=== PATIENT | female | born 1940 | race Caucasian/White ===

== ENCOUNTER 2018-11-04 15:48 | Emergency (ER) | payer BC, MEDICARE ==
[~2018-11-04] VITALS: Ht 165.1 cm; Wt 58.0 kg
[2018-11-04 16:19] VITALS: BP 166/96
[2018-11-04] MEDS ORDERED: LIDOcaine 1% w/epiNEPHrine 1:200,000 30ml vial IM ONE (16:35)
[2018-11-04] MEDS ORDERED: CEPH500C5 PO (16:57)
== END 2018-11-04 17:16 | disposition home or self-care (01) ==
LOC: ER 15:51
DX: S80.811A Abrasion, right lower leg, initial encounter (principal); L03.115 Cellulitis of right lower limb; F41.9 Anxiety disorder, unspecified; F17.200 Nicotine dependence, unspecified, uncomplicated; F17.210 Nicotine dependence, cigarettes, uncomplicated; Z79.2 Long term (current) use of antibiotics; X58.XXXA Exposure to other specified factors, initial encounter; Y93.89 Activity, other specified; Y92.89 Other specified places as the place of occurrence of the external cause; Y99.8 Other external cause status
CPT/HCPCS: 99283

== ENCOUNTER 2018-11-12 13:42 | Emergency (ER) | payer BC ==
[~2018-11-12] VITALS: Ht 165.1 cm; Wt 53.0 kg
[~2018-11-12 13:42] MED LIST: CEPH500C5 PO
[2018-11-12 13:46] VITALS: BP 158/93
== END 2018-11-12 15:15 | disposition home or self-care (01) ==
LOC: ER 13:42
DX: S81.801D Unspecified open wound, right lower leg, subsequent encounter (principal); F41.9 Anxiety disorder, unspecified; Z79.2 Long term (current) use of antibiotics; X58.XXXD Exposure to other specified factors, subsequent encounter
CPT/HCPCS: 99281

== ENCOUNTER 2018-11-29 14:14 | Emergency (ER) | payer BC, MEDICARE ==
[~2018-11-29] VITALS: Ht 165.1 cm; Wt 55.9 kg
[2018-11-29 14:22] VITALS: BP 131/71
[2018-11-29] MEDS ORDERED: ALPR-624 PO (15:57)
[2018-11-29] MEDS ORDERED: GABA600T13 PO (15:57)
== END 2018-11-29 16:14 | disposition home or self-care (01) ==
LOC: ER 14:17
DX: G62.9 Polyneuropathy, unspecified (principal); F41.9 Anxiety disorder, unspecified; Z76.0 Encounter for issue of repeat prescription; Z79.899 Other long term (current) drug therapy
CPT/HCPCS: 99283

== ENCOUNTER 2019-01-25 10:38 | Emergency (ER) | payer MEDICARE ==
[~2019-01-25] VITALS: Ht 167.6 cm; Wt 60.5 kg
[~2019-01-25 10:38] MED LIST changes: +ALPR-624 PO; -CEPH500C5 PO; +GABA600T13 PO
[2019-01-25 13:45] VITALS: BP 161/93
== END 2019-01-25 13:48 | disposition home or self-care (01) ==
LOC: ER 10:39
DX: S80.811A Abrasion, right lower leg, initial encounter (principal); G62.9 Polyneuropathy, unspecified; F41.9 Anxiety disorder, unspecified; F10.99 Alcohol use, unspecified with unspecified alcohol-induced disorder; Z79.899 Other long term (current) drug therapy; W18.39XA Other fall on same level, initial encounter; Y93.89 Activity, other specified; Y92.89 Other specified places as the place of occurrence of the external cause; Y99.8 Other external cause status; Y90.9 Presence of alcohol in blood, level not specified
CPT/HCPCS: 70450; 72125; 99284

== ENCOUNTER 2019-03-12 10:00 | Emergency (ER) | payer MEDICARE ==
[~2019-03-12] VITALS: Ht 165.1 cm; Wt 62.9 kg
[2019-03-12 10:16] VITALS: BP 153/87
[2019-03-12] MEDS ORDERED: CEPH500C5 PO (13:07)
[2019-03-12] MEDS ORDERED: CLOT15CR73 TP (13:07)
== END 2019-03-12 13:20 | disposition home or self-care (01) ==
LOC: ER 10:02
DX: N61.0 Mastitis without abscess (principal); B37.2 Candidiasis of skin and nail; F41.9 Anxiety disorder, unspecified; F10.99 Alcohol use, unspecified with unspecified alcohol-induced disorder; G62.9 Polyneuropathy, unspecified; Z79.899 Other long term (current) drug therapy; Z85.3 Personal history of malignant neoplasm of breast; Y90.9 Presence of alcohol in blood, level not specified
CPT/HCPCS: 99283

== ENCOUNTER 2019-07-24 12:51 | Emergency (ER) | payer BC, MEDICARE ==
[~2019-07-24] VITALS: Ht 167.6 cm; Wt 63.6 kg
[~2019-07-24 12:51] MED LIST changes: +CLOT15CR73 TP
[2019-07-24] MEDS ORDERED: DONE-46 PO (13:23)
[2019-07-24 15:21] LABS: BASOPHILS % (AUTO) 0.5 % (0-1); EOSINOPHILS # (AUTO) 0.1 X10'3 (0-0.9); EOSINOPHILS % (AUTO) 1.5 % (0-6); HEMATOCRIT 42.1 % (35.0-45.0); HEMOGLOBIN 14.2 g/dl (12.0-16.0); LYMPHOCYTES # (AUTO) 1.2 X10'3 (1.1-4.8); LYMPHOCYTES % (AUTO) 21.9 % (21-51); MEAN CORPUSCULAR HEMOGLOBIN 31.8 PG (27.0-31.0); MEAN CORPUSCULAR HGB CONC 33.7 g/dL (33.0-36.5); MEAN CORPUSCULAR VOLUME 94.4 FL (78-98); MEAN PLATELET VOLUME 7.8 FL (7.4-10.4); MONOCYTES # (AUTO) 0.4 X10'3 (0-0.9); MONOCYTES % (AUTO) 7.9 % (2-12); NEUTROPHILS # (AUTO) 3.8 X10'3 (1.8-7.7); NEUTROPHILS % (AUTO) 68.2 % (42-75); PLATELET COUNT 185 X10'3 (140-440); RED BLOOD COUNT 4.46 X10'6 (4.20-5.60); RED CELL DISTRIBUTION WIDTH 13.1 % (11.5-14.5); WHITE BLOOD COUNT 5.5 X10'3 (4.5-11.0)
[2019-07-24 15:36] LABS: PARTIAL THROMBOPLASTIN TIME 29 SECONDS (22-32)
[2019-07-24 15:37] VITALS: BP 150/85
[2019-07-24 15:48] LABS: ALANINE AMINOTRANSFERASE 20 U/L (12-78); ALBUMIN/GLOBULIN RATIO 1.4 (1.1-1.5); ALKALINE PHOSPHATASE 74 IU/L (46-116); ANION GAP 7 (8-16); ASPARTATE AMINO TRANSFERASE 21 U/L (10-37); BILIRUBIN,TOTAL 0.4 MG/DL (0.1-1.0); BLOOD UREA NITROGEN 10 MG/DL (7-18); BUN/CREATININE RATIO 13.5 (6.6-38.0); CALCIUM 8.9 MG/DL (8.5-10.1); CHLORIDE 101 MMOL/L (99-107); CREATININE 0.74 MG/DL (0.40-0.90); GLUCOSE 100 MG/DL (70-104); POTASSIUM 3.9 MMOL/L (3.5-5.1); SODIUM 136 MMOL/L (135-145); TOTAL CARBON DIOXIDE 27.6 MMOL/L (24-32); TOTAL PROTEIN 6.8 G/DL (6.4-8.2); eGFR 76 ML/MIN
== END 2019-07-24 16:00 | disposition home or self-care (01) ==
LOC: ER 12:51
DX: D69.2 Other nonthrombocytopenic purpura (principal); R21 Rash and other nonspecific skin eruption; F41.9 Anxiety disorder, unspecified; Z79.899 Other long term (current) drug therapy
CPT/HCPCS: 36415; 80053; 85025; 85610; 85730; 99283

== ENCOUNTER 2019-09-21 11:16 | Emergency (ER) | payer BC, MEDICARE ==
[~2019-09-21] VITALS: Ht 165.1 cm; Wt 59.1 kg
[~2019-09-21 11:16] MED LIST changes: +DONE-46 PO
[2019-09-21 11:26] VITALS: BP 136/74
--- NOTE | 2019-09-21 12:28 | NUR ---
pt out to xray in a wheelchair with chang cortes
--- NOTE | 2019-09-21 12:36 | NUR ---
pt returns from xray
[2019-09-21] MEDS ORDERED: CEPH250T PO (13:22)
[2019-09-21] MEDS ORDERED: traMADol 50MG tablet PO ONE ×2 (13:25→13:50)
--- NOTE | 2019-09-21 13:48 | NUR ---
Attempted to give pt tramadol. Pt accidentally dropped medication. Pharmacy contacted and another dose to be administered.
== END 2019-09-21 14:24 | disposition home or self-care (01) ==
LOC: ER 11:17
DX: S00.83XA Contusion of other part of head, initial encounter (principal); M25.551 Pain in right hip; R58 Hemorrhage, not elsewhere classified; F41.9 Anxiety disorder, unspecified; Z72.89 Other problems related to lifestyle; Z79.2 Long term (current) use of antibiotics; Z79.899 Other long term (current) drug therapy; W01.198A Fall on same level from slipping, tripping and stumbling with subsequent striking against other object, initial encounter; Y92.89 Other specified places as the place of occurrence of the external cause; Z91.81 History of falling; Y93.89 Activity, other specified
CPT/HCPCS: 70450; 73522; 99284

== ENCOUNTER 2020-03-16 11:33 | Observation (INO) | payer BC, MEDICARE ==
[~2020-03-16] VITALS: Ht 165.1 cm; Wt 64.4 kg
[2020-03-16 13:21] LABS: BASOPHILS % (AUTO) 0.7 % (0-1); EOSINOPHILS # (AUTO) 0.1 X10'3 (0-0.9); EOSINOPHILS % (AUTO) 2.2 % (0-6); HEMATOCRIT 33.2 % (35.0-45.0); HEMOGLOBIN 10.2 g/dl (12.0-16.0); LYMPHOCYTES # (AUTO) 1.5 X10'3 (1.1-4.8); LYMPHOCYTES % (AUTO) 25.8 % (21-51); MEAN CORPUSCULAR HEMOGLOBIN 21.6 PG (27.0-31.0); MEAN CORPUSCULAR HGB CONC 30.8 g/dL (33.0-36.5); MEAN CORPUSCULAR VOLUME 70.2 FL (78-98); MEAN PLATELET VOLUME 7.9 FL (7.4-10.4); MONOCYTES # (AUTO) 0.7 X10'3 (0-0.9); MONOCYTES % (AUTO) 11.3 % (2-12); NEUTROPHILS # (AUTO) 3.5 X10'3 (1.8-7.7); PLATELET COUNT 234 X10'3 (140-440); RED BLOOD COUNT 4.72 X10'6 (4.20-5.60); RED CELL DISTRIBUTION WIDTH 19.4 % (11.5-14.5); WHITE BLOOD COUNT 5.8 X10'3 (4.5-11.0)
[2020-03-16 13:38] LABS: ALANINE AMINOTRANSFERASE 30 U/L (12-78); ALBUMIN 4.4 G/DL (3.4-5.0); ALBUMIN/GLOBULIN RATIO 1.4 (1.1-1.5); ALKALINE PHOSPHATASE 86 IU/L (46-116); ANION GAP 9 (8-16); ASPARTATE AMINO TRANSFERASE 25 U/L (10-37); BILIRUBIN,TOTAL 0.5 MG/DL (0.1-1.0); BLOOD UREA NITROGEN 8 MG/DL (7-18); BUN/CREATININE RATIO 11.9 (6.6-38.0); CALCIUM 8.8 MG/DL (8.5-10.1); CHLORIDE 102 MMOL/L (99-107); CREATININE 0.67 MG/DL (0.40-0.90); GLUCOSE 102 MG/DL (70-104); POTASSIUM 3.9 MMOL/L (3.5-5.1); SODIUM 139 MMOL/L (135-145); TOTAL CARBON DIOXIDE 28.3 MMOL/L (24-32); TOTAL PROTEIN 7.5 G/DL (6.4-8.2); eGFR 85 ML/MIN
[2020-03-16 13:42] LABS: TROPONIN I < 0.04 NG/ML (0.0-0.05)
[2020-03-16 13:43] LABS: ANISOCYTOSIS 2+; MICROCYTOSIS 1+; PLATELET ESTIMATE NORMAL
[2020-03-16 13:44] LABS: HYPOCHROMASIA 1+
[2020-03-16 16:04] LABS: CLARITY,URINE CLEAR (Clear); COLOR,URINE YELLOW (Yellow); GLUCOSE, URINE NEGATIVE (Neg); KETONES,URINE NEGATIVE (Neg); LEUKOCYTE ESTERASE ,URINE SMALL (Neg); NITRITES, URINE NEGATIVE (Neg); OCCULT BLOOD,URINE NEGATIVE (Neg); PROTEIN,URINE NEGATIVE (Neg); UA COLLECTION TYPE CLN CATCH MIDSTREAM; UROBILINOGEN,URINE 0.2 E.U/dL (0.2-1.0)
[2020-03-16] MEDS ORDERED: ondansetron/PF 4mg/2ml inj IV PRN (16:05)
[2020-03-16] MEDS ORDERED: acetaminophen 325mg tablet PO PRN ×2 (16:05)
[2020-03-16] MEDS ORDERED: magnesium hydroxide 30ml (MOM) UD suspension PO PRN (16:05)
[2020-03-16] MEDS ORDERED: mag hydrox/Alum hydrox/simeth 30ml oral suspension PO PRN (16:05)
[2020-03-16] MEDS ORDERED: dextrose 5%-1/2 normal saline 1,000 ML IV SCH (16:05)
[2020-03-16] MEDS ORDERED: morphine 2 MG/ML inj. syringe IV PRN ×2 (16:05)
[2020-03-16 16:08] LABS: BACTERIA,URINE FEW /HPF (Neg); MUCUS STRANDS FEW /LPF (Neg); RBC,URINE 0-2 /HPF (0-2); SQUAMOUS EPITHELIAL CELL,UR FEW /LPF (FEW); WBC,URINE 0-4 /HPF (0-4)
[2020-03-16] MEDS ORDERED: OLAN5TAB26 PO (16:17)
[2020-03-16] MEDS ORDERED: DONE10TA44 PO (16:17)
[2020-03-16] MEDS ORDERED: GABA600T13 PO (16:17)
[2020-03-16] MEDS ORDERED: DIVA500T9 PO (16:17)
[2020-03-16 16:39] LABS: MAGNESIUM 2.3 MG/DL (1.5-2.4); PHOSPHORUS 3.8 MG/DL (2.3-4.5)
--- NOTE | 2020-03-16 16:55 | NUR ---
Denis () [facility] [phone] Cell- [phone]
--- NOTE | 2020-03-16 17:40 | NUR ---
Patient is tearful/restless and states she is anxious and "can't stay like this any longer." [facility] called. Patient reassured. Now sitting in room quietly.
[2020-03-16] MEDS ORDERED: LORazepam 1 MG tablet PO ONE (18:30)
--- NOTE | 2020-03-16 18:32 | NUR ---
Dr. Acosta at bedside. SBP >190. Pt is anxious and tearful. Orders placed.
[2020-03-16] MEDS ORDERED: LORazepam 0.5 MG tablet PO ONE (18:50)
--- NOTE | 2020-03-16 19:51 | NUR ---
attempt to call report to nurse on floor taking pt
[2020-03-16] MEDS ORDERED: LORazepam 0.5 MG tablet PO PRN (20:05)
--- NOTE | 2020-03-16 20:08 | NUR ---
attempt to call report to floo nurse receiving pt
--- NOTE | 2020-03-16 20:10 | NUR ---
Patient in room PCU 3023. I have received report from ed rn and had the opportunity to ask questions and assume patient care.
[2020-03-16 22:00] VITALS: BP_SYST 140; BP_SYST 163; BP_SYST 178; BP_DIAS 59; BP_DIAS 78; BP_DIAS 80
[2020-03-16] MEDS: donepezil 5mg tablet PO SCH (22:31)
[2020-03-16] MEDS: cloNIDine 0.1 mg tablet PO SCH (22:32)
[2020-03-16] MEDS: gabapentin 300mg capsule PO SCH (22:32)
[2020-03-16] MEDS: divalproex 250mg tablet, delayed-release PO SCH (22:32)
[2020-03-17] VITALS (7 sets, daily range): BP systolic 84–143; BP diastolic 51–77
[2020-03-17 06:24] LABS: BASOPHILS % (AUTO) 0.9 % (0-1); EOSINOPHILS # (AUTO) 0.2 X10'3 (0-0.9); EOSINOPHILS % (AUTO) 3.5 % (0-6); HEMATOCRIT 29.4 % (35.0-45.0); HEMOGLOBIN 8.9 g/dl (12.0-16.0); LYMPHOCYTES # (AUTO) 1.3 X10'3 (1.1-4.8); LYMPHOCYTES % (AUTO) 30.4 % (21-51); MEAN CORPUSCULAR HEMOGLOBIN 21.4 PG (27.0-31.0); MEAN CORPUSCULAR HGB CONC 30.4 g/dL (33.0-36.5); MEAN CORPUSCULAR VOLUME 70.4 FL (78-98); MEAN PLATELET VOLUME 8.5 FL (7.4-10.4); MONOCYTES # (AUTO) 0.5 X10'3 (0-0.9); MONOCYTES % (AUTO) 12.1 % (2-12); NEUTROPHILS # (AUTO) 2.3 X10'3 (1.8-7.7); NEUTROPHILS % (AUTO) 53.1 % (42-75); PLATELET COUNT 199 X10'3 (140-440); RED BLOOD COUNT 4.17 X10'6 (4.20-5.60); RED CELL DISTRIBUTION WIDTH 18.5 % (11.5-14.5); WHITE BLOOD COUNT 4.4 X10'3 (4.5-11.0)
--- NOTE | 2020-03-17 06:25 | NUR ---
Patient in room PCU 3023. I have received report from tara woodson and had the opportunity to ask questions and assume patient care.
[2020-03-17 06:34] LABS: ALBUMIN 3.6 G/DL (3.4-5.0); ANION GAP 6 (8-16); BLOOD UREA NITROGEN 10 MG/DL (7-18); BUN/CREATININE RATIO 15.4 (6.6-38.0); CALCIUM 8.6 MG/DL (8.5-10.1); CHLORIDE 105 MMOL/L (99-107); CREATININE 0.65 MG/DL (0.40-0.90); GLUCOSE 99 MG/DL (70-104); POTASSIUM 3.8 MMOL/L (3.5-5.1); SODIUM 141 MMOL/L (135-145); TOTAL CARBON DIOXIDE 29.7 MMOL/L (24-32); eGFR 88 ML/MIN
--- NOTE | 2020-03-17 07:26 | NUR ---
Problems reprioritized. Patient report given, questions answered & plan of care reviewed with Kayley RIZO.
[2020-03-17] MEDS: OLANZAPINE 5 MG TABLET PO SCH (08:48)
[2020-03-17] MEDS: divalproex 250mg tablet, delayed-release PO SCH ×2 (08:48→19:42)
[2020-03-17] MEDS: cloNIDine 0.1 mg tablet PO SCH ×3 (08:49→19:43)
[2020-03-17] MEDS: gabapentin 300mg capsule PO SCH ×3 (08:49→19:42)
[2020-03-17] MEDS ORDERED: LORazepam 2 mg/ml vial IV PRN (11:40)
--- NOTE | 2020-03-17 18:29 | NUR ---
Problems reprioritized. Patient report given, questions answered & plan of care reviewed with .tara salas
[2020-03-17] MEDS: donepezil 5mg tablet PO SCH (19:42)
[2020-03-18 02:00] VITALS: BP 114/49
[2020-03-18 06:00] VITALS: BP 115/63
--- NOTE | 2020-03-18 06:24 | NUR ---
Report given to Emerald RIZO.
--- NOTE | 2020-03-18 06:39 | NUR ---
Patient in room PCU 3023B. I have received report from SALLIE MANNING and had the opportunity to ask questions and assume patient care.
[2020-03-18 07:06] LABS: ALBUMIN 3.5 G/DL (3.4-5.0); ANION GAP 8 (8-16); BASOPHILS % (AUTO) 0.7 % (0-1); BLOOD UREA NITROGEN 15 MG/DL (7-18); BUN/CREATININE RATIO 22.7 (6.6-38.0); CALCIUM 8.3 MG/DL (8.5-10.1); CHLORIDE 102 MMOL/L (99-107); CREATININE 0.66 MG/DL (0.40-0.90); EOSINOPHILS # (AUTO) 0.2 X10'3 (0-0.9); EOSINOPHILS % (AUTO) 3.4 % (0-6); GLUCOSE 92 MG/DL (70-104); HEMATOCRIT 31.4 % (35.0-45.0); HEMOGLOBIN 9.8 g/dl (12.0-16.0); LYMPHOCYTES # (AUTO) 1.6 X10'3 (1.1-4.8); MEAN CORPUSCULAR HEMOGLOBIN 21.7 PG (27.0-31.0); MEAN CORPUSCULAR HGB CONC 31.2 g/dL (33.0-36.5); MEAN CORPUSCULAR VOLUME 69.4 FL (78-98); MEAN PLATELET VOLUME 7.9 FL (7.4-10.4); MONOCYTES # (AUTO) 0.5 X10'3 (0-0.9); MONOCYTES % (AUTO) 10.3 % (2-12); NEUTROPHILS # (AUTO) 2.5 X10'3 (1.8-7.7); NEUTROPHILS % (AUTO) 52.6 % (42-75); PLATELET COUNT 214 X10'3 (140-440); POTASSIUM 4.1 MMOL/L (3.5-5.1); RED BLOOD COUNT 4.52 X10'6 (4.20-5.60); RED CELL DISTRIBUTION WIDTH 18.8 % (11.5-14.5); SODIUM 138 MMOL/L (135-145); TOTAL CARBON DIOXIDE 27.9 MMOL/L (24-32); WHITE BLOOD COUNT 4.8 X10'3 (4.5-11.0); eGFR 87 ML/MIN
[2020-03-18] MEDS: cloNIDine 0.1 mg tablet PO SCH (08:00)
[2020-03-18] MEDS ORDERED: CefTRIAXone/D5W-Rocephin 1gm 50 ML IV ONE (08:55)
[2020-03-18] MEDS: divalproex 250mg tablet, delayed-release PO SCH (10:00)
[2020-03-18] MEDS: gabapentin 300mg capsule PO SCH (10:00)
[2020-03-18] MEDS ORDERED: pneumococcal 23-VAL P-sac vacc 25 mcg/0.5ml vial IMVAC ONE (10:00)
[2020-03-18] MEDS: OLANZAPINE 5 MG TABLET PO SCH (10:01)
[2020-03-18 11:00] VITALS: BP 114/55
[2020-03-18 11:36] LABS: ANISOCYTOSIS 2+; ELLIPTOCYTES FEW; MICROCYTOSIS 2+; PLATELET ESTIMATE NORMAL
[2020-03-18] MEDS ORDERED: CIPR-230 PO (12:23)
--- NOTE | 2020-03-18 17:49 | NUR ---
PATIENT STABLE AND APPROPRIATE FOR DISCHARGE, IV TAKEN OUT, NEW MEDS E-SCRIPTED TO PREFERRED PHARMACY, ALL BELONGINGS SENT WITH PATIENT, PATIENT TAKEN TO LOBBY IN WHEELCHAIR TO AN AWAITING CAR WHERE WILL TAKE PATIENT HOME
== END 2020-03-18 13:40 | disposition home or self-care (01) ==
LOC: ER 11:33 → ED HOLD 16:02 → EDBEDREQ 19:45 → PCU 3S 20:35
PROVIDERS: ADMIT Internal Medicine; ATTEND Internal Medicine
DX: R55 Syncope and collapse (principal); F03.90 Unspecified dementia, unspecified severity, without behavioral disturbance, psychotic disturbance, mood disturbance, and anxiety; I10 Essential (primary) hypertension; D50.9 Iron deficiency anemia, unspecified; N39.0 Urinary tract infection, site not specified; G62.9 Polyneuropathy, unspecified; F41.9 Anxiety disorder, unspecified; F17.210 Nicotine dependence, cigarettes, uncomplicated; W07.XXXA Fall from chair, initial encounter; Y93.89 Activity, other specified; Y92.59 Other trade areas as the place of occurrence of the external cause
CPT/HCPCS: 36415; 70450; 70551; 80048; 80053; 81001; 83735; 83880; 84100; 84484; 85008; 85025; 87077; 87081; 87088; 87186; 93005; 93306; 96361; 96365; 99285; G0378; J0696

== ENCOUNTER 2020-09-20 09:16 | Outpatient (CLI) | payer BC ==
[~2020-09-20 09:16] MED LIST changes: -ALPR-624 PO; -CLOT15CR73 TP; +DIVA500T9 PO; -DONE-46 PO; +DONE10TA44 PO; +OLAN5TAB26 PO
== END 2020-09-20 23:59 | disposition home or self-care (01) ==
LOC: RAD 09:16
PROVIDERS: ATTEND Psychiatry & Neurology Neurology
DX: F03.90 Unspecified dementia, unspecified severity, without behavioral disturbance, psychotic disturbance, mood disturbance, and anxiety (principal)
CPT/HCPCS: 95816

== ENCOUNTER 2020-11-20 10:27 | Inpatient (IN) | payer BC ==
[~2020-11-20] VITALS: Ht 165.1 cm; Wt 59.1 kg
[~2020-11-20 10:27] MED LIST changes: -OLAN5TAB26 PO; +OLAN5TAB75 PO
[2020-11-20 12:33] LABS: CLARITY,URINE SLIGHTLY CLOUDY (Clear); COLOR,URINE YELLOW (Yellow); GLUCOSE, URINE NEGATIVE (Neg); KETONES,URINE TRACE mg/dl (Neg); LEUKOCYTE ESTERASE ,URINE NEGATIVE (Neg); NITRITES, URINE NEGATIVE (Neg); OCCULT BLOOD,URINE NEGATIVE (Neg); PH,URINE 5.5 (4.8-8.0); PROTEIN,URINE NEGATIVE (Neg); UROBILINOGEN,URINE 0.2 E.U/dL (0.2-1.0)
[2020-11-20 12:41] LABS: UA COLLECTION TYPE FOLEY CATH
[2020-11-20 12:45] LABS: RBC,URINE NONE SEEN /HPF (0-2); WBC,URINE 0-4 /HPF (0-4)
[2020-11-20 12:46] LABS: BACTERIA,URINE NONE SEEN /HPF (Neg); HYALINE CASTS >30 /LPF (NEGATIVE); MUCUS STRANDS MODERATE /LPF (Neg); SQUAMOUS EPITHELIAL CELL,UR FEW /LPF (FEW)
[2020-11-20 12:54] LABS: BASOPHILS % (AUTO) 0 % (0-1); EOSINOPHILS % (AUTO) 0 % (0-6); HEMATOCRIT 38.6 % (35.0-45.0); HEMOGLOBIN 12.9 g/dl (12.0-16.0); LYMPHOCYTES # (AUTO) 0.8 X10'3 (1.1-4.8); LYMPHOCYTES % (AUTO) 5.8 % (21-51); MEAN CORPUSCULAR HEMOGLOBIN 31.8 PG (27.0-31.0); MEAN CORPUSCULAR HGB CONC 33.3 g/dL (33.0-36.5); MEAN CORPUSCULAR VOLUME 95.5 FL (78-98); MONOCYTES # (AUTO) 1.2 X10'3 (0-0.9); MONOCYTES % (AUTO) 8.1 % (2-12); NEUTROPHILS # (AUTO) 12.6 X10'3 (1.8-7.7); NEUTROPHILS % (AUTO) 86.1 % (42-75); PLATELET COUNT 230 X10'3 (140-440); RED BLOOD COUNT 4.04 X10'6 (4.20-5.60); RED CELL DISTRIBUTION WIDTH 13.8 % (11.5-14.5); WHITE BLOOD COUNT 14.6 X10'3 (4.5-11.0)
[2020-11-20 13:05] LABS: PARTIAL THROMBOPLASTIN TIME 25 SECONDS (22-32)
[2020-11-20 13:06] LABS: ALANINE AMINOTRANSFERASE 22 U/L (12-78); ALBUMIN 3.6 G/DL (3.4-5.0); ALBUMIN/GLOBULIN RATIO 1.6 (1.1-1.5); ALKALINE PHOSPHATASE 58 IU/L (46-116); ANION GAP 14 (8-16); ASPARTATE AMINO TRANSFERASE 31 U/L (10-37); BILIRUBIN,TOTAL 0.6 MG/DL (0.1-1.0); BLOOD UREA NITROGEN 7 MG/DL (7-18); BUN/CREATININE RATIO 10.1 (6.6-38.0); CALCIUM 7.7 MG/DL (8.5-10.1); CHLORIDE 99 MMOL/L (99-107); CREATININE 0.69 MG/DL (0.40-0.90); GLUCOSE 108 MG/DL (70-104); POTASSIUM 4.2 MMOL/L (3.5-5.1); SODIUM 137 MMOL/L (135-145); TOTAL CARBON DIOXIDE 23.6 MMOL/L (24-32); TOTAL PROTEIN 5.9 G/DL (6.4-8.2); eGFR 82 ML/MIN
[2020-11-20] MEDS: normal saline 1000ml 1,000 ML IV SCH (14:25)
[2020-11-20] MEDS ORDERED: ondansetron/PF 4mg/2ml inj IV PRN (14:25)
[2020-11-20] MEDS ORDERED: acetaminophen 325mg tablet PO PRN (14:25)
[2020-11-20] MEDS ORDERED: mag hydrox/Alum hydrox/simeth 30ml oral suspension PO PRN (14:25)
--- NOTE | 2020-11-20 17:09 | NUR ---
Patient in room ED 3. I have received report from Amaris RIZO and had the opportunity to ask questions and assume patient care.
--- NOTE | 2020-11-20 17:50 | NUR ---
unable to assess pts buttocks during skin check. will let shift supervisor film processing know so that they can medicate her before doing so.
[2020-11-20 17:52] VITALS: BP 162/70
--- NOTE | 2020-11-20 17:59 | NUR ---
Page Sent PAGER ID: [phone] MESSAGE: [phone] b Mary Ann Cheema, can I get some po pain meds? pt is in pain and only has morphine IV ordered.
[2020-11-20] MEDS: morphine 2 MG/ML inj. syringe IV PRN (18:07)
--- NOTE | 2020-11-20 18:33 | NUR ---
Problems reprioritized. Patient report given, questions answered & plan of care reviewed with andrey pacheco.
[2020-11-20] MEDS: docusate sod 100mg capsule PO SCH (20:00)
[2020-11-20] MEDS: donepezil 5mg tablet PO SCH (20:14)
[2020-11-20 22:00] VITALS: BP 127/66
[2020-11-21] MEDS: normal saline 1000ml 1,000 ML IV SCH ×3 (05:07→20:25)
[2020-11-21 06:00] VITALS: BP 141/75
[2020-11-21 07:03] LABS: BASOPHILS % (AUTO) 0.2 % (0-1); EOSINOPHILS % (AUTO) 0.1 % (0-6); HEMOGLOBIN 10.5 g/dl (12.0-16.0); LYMPHOCYTES # (AUTO) 1.2 X10'3 (1.1-4.8); MEAN CORPUSCULAR HEMOGLOBIN 31.8 PG (27.0-31.0); MEAN CORPUSCULAR HGB CONC 33.7 g/dL (33.0-36.5); MEAN CORPUSCULAR VOLUME 94.2 FL (78-98); MEAN PLATELET VOLUME 8.2 FL (7.4-10.4); MONOCYTES # (AUTO) 0.8 X10'3 (0-0.9); MONOCYTES % (AUTO) 12.6 % (2-12); NEUTROPHILS # (AUTO) 4.5 X10'3 (1.8-7.7); NEUTROPHILS % (AUTO) 69.1 % (42-75); PLATELET COUNT 142 X10'3 (140-440); RED BLOOD COUNT 3.29 X10'6 (4.20-5.60); WHITE BLOOD COUNT 6.5 X10'3 (4.5-11.0)
[2020-11-21] MEDS: docusate sod 100mg capsule PO SCH ×2 (07:08→21:38)
[2020-11-21] MEDS: enoxaparin 40mg/0.4ml syringe SUBCUT SCH (07:08)
[2020-11-21] MEDS: donepezil 5mg tablet PO SCH ×2 (07:08→21:38)
[2020-11-21 07:52] LABS: ANION GAP 8 (8-16); BLOOD UREA NITROGEN 11 MG/DL (7-18); BUN/CREATININE RATIO 20.4 (6.6-38.0); CHLORIDE 105 MMOL/L (99-107); CREATININE 0.54 MG/DL (0.40-0.90); GLUCOSE 98 MG/DL (70-104); SODIUM 140 MMOL/L (135-145); TOTAL CARBON DIOXIDE 26.9 MMOL/L (24-32); eGFR > 90 ML/MIN
[2020-11-21 10:56] VITALS: BP 156/89
--- NOTE | 2020-11-21 12:20 | NUR ---
Isidro Consult: Isidro Gooden; skin intact per EMR. Addendum: 11/21/20 at [address] Amended: Links added.
[2020-11-21] MEDS: morphine 2 MG/ML inj. syringe IV PRN (17:27)
[2020-11-21 18:00] VITALS: BP 165/86
--- NOTE | 2020-11-21 18:35 | NUR ---
Patient in room ORTHO 4010. I have received report from Amber RIZO and had the opportunity to ask questions and assume patient care.
[2020-11-21] MEDS: HYDROcodone/acetaminophen 10/325mg tab PO PRN ×2 (18:55→23:27)
--- NOTE | 2020-11-21 19:30 | NUR ---
Her left leg is externally rotated from the fracture Addendum: 11/22/20 at 0016 by Blanche Taylor RN Amended: Links added.
[2020-11-21 22:00] VITALS: BP 145/76
[2020-11-22] VITALS (17 sets, daily range): BP systolic 88–175; BP diastolic 44–91
[2020-11-22] MEDS: morphine 2 MG/ML inj. syringe IV PRN (04:50)
--- NOTE | 2020-11-22 06:30 | NUR ---
Problems reprioritized. Patient report given, questions answered & plan of care reviewed with Cecy RIZO.
--- NOTE | 2020-11-22 06:39 | NUR ---
Patient in room ORTHO 4010. I have received report from sena Martínez and had the opportunity to ask questions and assume patient care.
--- NOTE | 2020-11-22 06:41 | NUR ---
Patient in room ORTHO 4010. I have received report from SALLIE Rosa and had the opportunity to ask questions and assume patient care. Addendum: 11/22/20 at 0659 by Marjan Cummings RN Wrong Patient
[2020-11-22 06:59] LABS: BASOPHILS % (AUTO) 0.2 % (0-1); EOSINOPHILS % (AUTO) 0.1 % (0-6); HEMATOCRIT 27.1 % (35.0-45.0); HEMOGLOBIN 9.2 g/dl (12.0-16.0); LYMPHOCYTES # (AUTO) 0.8 X10'3 (1.1-4.8); LYMPHOCYTES % (AUTO) 11.7 % (21-51); MEAN CORPUSCULAR HEMOGLOBIN 31.7 PG (27.0-31.0); MEAN CORPUSCULAR HGB CONC 33.9 g/dL (33.0-36.5); MEAN CORPUSCULAR VOLUME 93.5 FL (78-98); MEAN PLATELET VOLUME 8.5 FL (7.4-10.4); MONOCYTES # (AUTO) 0.7 X10'3 (0-0.9); MONOCYTES % (AUTO) 11.3 % (2-12); NEUTROPHILS % (AUTO) 76.7 % (42-75); PLATELET COUNT 123 X10'3 (140-440); RED BLOOD COUNT 2.89 X10'6 (4.20-5.60); WHITE BLOOD COUNT 6.5 X10'3 (4.5-11.0)
[2020-11-22 07:02] LABS: ALBUMIN 2.9 G/DL (3.4-5.0); ANION GAP 7 (8-16); BLOOD UREA NITROGEN 8 MG/DL (7-18); BUN/CREATININE RATIO 18.6 (6.6-38.0); CALCIUM 7.7 MG/DL (8.5-10.1); CHLORIDE 102 MMOL/L (99-107); CREATININE 0.43 MG/DL (0.40-0.90); GLUCOSE 113 MG/DL (70-104); POTASSIUM 3.3 MMOL/L (3.5-5.1); SODIUM 137 MMOL/L (135-145); eGFR > 90 ML/MIN
[2020-11-22] MEDS: enoxaparin 40mg/0.4ml syringe SUBCUT SCH ×2 (08:00→08:11)
[2020-11-22] MEDS: donepezil 5mg tablet PO SCH ×2 (08:10→19:29)
[2020-11-22] MEDS: HYDROcodone/acetaminophen 10/325mg tab PO PRN ×3 (08:10→21:30)
[2020-11-22] MEDS: docusate sod 100mg capsule PO SCH ×2 (08:10→19:29)
[2020-11-22] MEDS: normal saline 1000ml 1,000 ML IV SCH ×2 (08:10→16:31)
[2020-11-22] MEDS ORDERED: propofol 10mg/ml 20ml vial IV ONE (12:15)
[2020-11-22] MEDS ORDERED: phenylephrine 10mg/ml inj. ONE (12:15)
[2020-11-22] MEDS ORDERED: BUPIVAcaine 0.5% inj/PF 30 ML ONE (12:16)
[2020-11-22] MEDS ORDERED: fentaNYL/PF 50MCG/1 ML 2ML syringe ONE ×2 (12:20→12:47)
[2020-11-22] MEDS ORDERED: midazolam 1 mg/ML 2ml injection ONE ×2 (12:20→12:46)
[2020-11-22] MEDS ORDERED: ceFAZolin 1000mg inj ONE ×2 (12:36)
[2020-11-22] MEDS ORDERED: ketamine 50mg/5ml syringe ONE (12:50)
--- NOTE | 2020-11-22 13:07 | NUR ---
ASSUME CARE PT AWAKE ALERT VSS NO DISTRESS ON RA SAT 99%. SPINAL LEVEL NOTED AT L1 UNABLE TO MOVE LEGS OR TOES. DRESSING TO LEFT HIP CDI WITH DRY ICE TO SITE. +CMS TO LEFT FOOT. CONT TO MONITOR. Addendum: 11/22/20 at 1332 by Jena Pineda RN Amended: Links added.
--- NOTE | 2020-11-22 13:32 | NUR ---
PT AWAKE DENIES PAIN, XRAY AT BEDSIDE HIP XRAY COMPLETED. Addendum: 11/22/20 at 1332 by Jena Pineda RN Amended: Links added.
--- NOTE | 2020-11-22 13:42 | NUR ---
PT AWAKE VSS NO DISTRESS SPINAL RESOLVING SLIGHTLY ABLE TO MOVE LOWER EXTR. TESSIE PO'S +CMS MEETS CRITERIA TO DC TO ROOM REPORT CALLED TO ORTHO NURSE TRANSPORT PT WITH TELE VIA BED. Addendum: 11/22/20 at 1429 by Jena Pineda RN Amended: Links added.
[2020-11-22] MEDS ORDERED: potassium Cl 20 mEq SR tablet PO STA (14:22)
[2020-11-22] MEDS: ceFAZolin/D5W- 1GM premix 50 ML IV SCH (15:15)
--- NOTE | 2020-11-22 18:41 | NUR ---
Problems reprioritized. Patient report given, questions answered & plan of care reviewed with bean pacheco.
--- NOTE | 2020-11-22 19:01 | NUR ---
Patient in room ORTHO 4010. I have received report from Cecy RIZO and had the opportunity to ask questions and assume patient care.
[2020-11-23 02:00] VITALS: BP 129/59
[2020-11-23] MEDS: normal saline 1000ml 1,000 ML IV SCH ×2 (04:18→14:31)
[2020-11-23] MEDS: HYDROcodone/acetaminophen 10/325mg tab PO PRN ×4 (05:37→19:35)
[2020-11-23 06:30] VITALS: BP 146/68
[2020-11-23 06:33] LABS: BASOPHILS % (AUTO) 0.1 % (0-1); EOSINOPHILS % (AUTO) 0.1 % (0-6); HEMATOCRIT 23.9 % (35.0-45.0); HEMOGLOBIN 8.2 g/dl (12.0-16.0); LYMPHOCYTES # (AUTO) 0.6 X10'3 (1.1-4.8); LYMPHOCYTES % (AUTO) 9.8 % (21-51); MEAN CORPUSCULAR HEMOGLOBIN 32.1 PG (27.0-31.0); MEAN CORPUSCULAR HGB CONC 34.3 g/dL (33.0-36.5); MEAN CORPUSCULAR VOLUME 93.5 FL (78-98); MEAN PLATELET VOLUME 8.3 FL (7.4-10.4); MONOCYTES # (AUTO) 0.7 X10'3 (0-0.9); MONOCYTES % (AUTO) 9.9 % (2-12); NEUTROPHILS # (AUTO) 5.3 X10'3 (1.8-7.7); NEUTROPHILS % (AUTO) 80.1 % (42-75); PLATELET COUNT 137 X10'3 (140-440); RED BLOOD COUNT 2.55 X10'6 (4.20-5.60); WHITE BLOOD COUNT 6.6 X10'3 (4.5-11.0)
--- NOTE | 2020-11-23 06:35 | NUR ---
Problems reprioritized. Patient report given, questions answered & plan of care reviewed with Cecy RIZO.
--- NOTE | 2020-11-23 06:35 | NUR ---
Patient in room ORTHO 4010. I have received report from bean pacheco and had the opportunity to ask questions and assume patient care.
[2020-11-23 06:59] LABS: ALBUMIN 2.7 G/DL (3.4-5.0); ANION GAP 8 (8-16); BLOOD UREA NITROGEN 6 MG/DL (7-18); BUN/CREATININE RATIO 16.2 (6.6-38.0); CALCIUM 7.8 MG/DL (8.5-10.1); CHLORIDE 102 MMOL/L (99-107); CREATININE 0.37 MG/DL (0.40-0.90); GLUCOSE 112 MG/DL (70-104); POTASSIUM 3.1 MMOL/L (3.5-5.1); SODIUM 137 MMOL/L (135-145); eGFR > 90 ML/MIN
[2020-11-23] MEDS: ceFAZolin/D5W- 1GM premix 50 ML IV SCH ×3 (08:17→15:32)
[2020-11-23] MEDS: enoxaparin 40mg/0.4ml syringe SUBCUT SCH (08:18)
[2020-11-23] MEDS: donepezil 5mg tablet PO SCH ×2 (08:18→19:34)
[2020-11-23] MEDS: docusate sod 100mg capsule PO SCH ×2 (08:18→19:34)
[2020-11-23] MEDS: morphine 2 MG/ML inj. syringe IV PRN (08:20)
--- NOTE | 2020-11-23 08:54 | NUR ---
PAGER ID: [phone] MESSAGE: Cecy pacheco [phone] re: Tammy Cheema 4010B. No mag result. K remains low at 3.1. Would you like to replace?
[2020-11-23] MEDS ORDERED: potassium Cl 40MEQ/1/2NS 520ml 520 ML IV PRN (09:15)
[2020-11-23] MEDS ORDERED: magnesium 4gm in 100ml NS 100 ML IV PRN (09:15)
[2020-11-23] MEDS ORDERED: potassium Cl 20 mEq SR tablet PO PRN (09:15)
[2020-11-23] MEDS ORDERED: magnesium Cl slow-release 64mg tablet PO PRN (09:15)
[2020-11-23 10:00] VITALS: BP 110/65
[2020-11-23] MEDS: potassium Cl 20 mEq SR tablet PO PRN ×3 (11:11→19:35)
[2020-11-23] MEDS: magnesium hydroxide 30ml (MOM) UD suspension PO PRN (11:11)
--- NOTE | 2020-11-23 16:02 | NUR ---
Pt remains pleasantly confused. Pt does not try and pull out chilel or IV as long as nursing staff or is in the room. Pt alert/oriented to self only. Pts says pts dementia has gotten worse over the last two years. Chilel catheter remains in place due to limited mobility. Pt LBM unknown, given MOM today. Pt has had adequate nutrition this shift. Will continue to monitor patient
[2020-11-23 18:00] VITALS: BP 106/59
--- NOTE | 2020-11-23 18:41 | NUR ---
Patient in room ORTHO 4010. I have received report from Cecy RIZO and had the opportunity to ask questions and assume patient care.
--- NOTE | 2020-11-23 18:43 | NUR ---
Problems reprioritized. Patient report given, questions answered & plan of care reviewed with bean pacheco.
[2020-11-23] MEDS: K and/or MAG REPLACEMENT MC SCH (19:35)
[2020-11-23 22:00] VITALS: BP 114/60
[2020-11-24] VITALS (7 sets, daily range): BP systolic 119–137; BP diastolic 44–77
[2020-11-24] MEDS: normal saline 1000ml 1,000 ML IV SCH ×2 (00:56→14:43)
[2020-11-24] MEDS: HYDROcodone/acetaminophen 10/325mg tab PO PRN ×3 (05:35→21:25)
[2020-11-24 06:06] LABS: BASOPHILS % (AUTO) 0.3 % (0-1); EOSINOPHILS % (AUTO) 0.9 % (0-6); LYMPHOCYTES # (AUTO) 0.8 X10'3 (1.1-4.8); LYMPHOCYTES % (AUTO) 18.2 % (21-51); MEAN CORPUSCULAR HEMOGLOBIN 32.3 PG (27.0-31.0); MEAN CORPUSCULAR HGB CONC 33.8 g/dL (33.0-36.5); MEAN CORPUSCULAR VOLUME 95.7 FL (78-98); MEAN PLATELET VOLUME 8.2 FL (7.4-10.4); MONOCYTES # (AUTO) 0.5 X10'3 (0-0.9); MONOCYTES % (AUTO) 11.3 % (2-12); NEUTROPHILS # (AUTO) 3.1 X10'3 (1.8-7.7); NEUTROPHILS % (AUTO) 69.3 % (42-75); PLATELET COUNT 132 X10'3 (140-440); RED BLOOD COUNT 2.09 X10'6 (4.20-5.60); RED CELL DISTRIBUTION WIDTH 14.9 % (11.5-14.5); WHITE BLOOD COUNT 4.5 X10'3 (4.5-11.0)
[2020-11-24 06:19] LABS: ANION GAP 5 (8-16); BLOOD UREA NITROGEN 6 MG/DL (7-18); CALCIUM 7.3 MG/DL (8.5-10.1); CHLORIDE 106 MMOL/L (99-107); GLUCOSE 96 MG/DL (70-104); POTASSIUM 3.9 MMOL/L (3.5-5.1); SODIUM 140 MMOL/L (135-145); eGFR > 90 ML/MIN
[2020-11-24 06:20] LABS: HEMOGLOBIN 6.8 g/dl (12.0-16.0)
--- NOTE | 2020-11-24 06:24 | NUR ---
Problems reprioritized. Patient report given, questions answered & plan of care reviewed with Dana RIZO.
--- NOTE | 2020-11-24 06:46 | NUR ---
I have received patient report from Corry RIZO
[2020-11-24] MEDS: K and/or MAG REPLACEMENT MC SCH ×2 (08:00→08:31)
[2020-11-24] MEDS: enoxaparin 40mg/0.4ml syringe SUBCUT SCH (08:00)
[2020-11-24] MEDS: docusate sod 100mg capsule PO SCH ×2 (08:15→20:00)
[2020-11-24] MEDS: donepezil 5mg tablet PO SCH ×2 (08:15→21:31)
[2020-11-24] MEDS: morphine 2 MG/ML inj. syringe IV PRN ×2 (08:15→14:42)
--- NOTE | 2020-11-24 13:08 | NUR ---
RECEIVED REPORT FROM ISAAC RIZO AND ASSUMED PATIENT CARE
--- NOTE | 2020-11-24 16:54 | NUR ---
Problems reprioritized. Patient report given, questions answered & plan of care reviewed with Ladonna RIZO.
[2020-11-25] MEDS: morphine 2 MG/ML inj. syringe IV PRN (01:51)
[2020-11-25] MEDS: normal saline 1000ml 1,000 ML IV SCH ×3 (02:21→14:25)
[2020-11-25 06:00] VITALS: BP 155/77
[2020-11-25 06:17] LABS: ANION GAP 7 (8-16); BLOOD UREA NITROGEN 6 MG/DL (7-18); CALCIUM 7.2 MG/DL (8.5-10.1); CHLORIDE 103 MMOL/L (99-107); GLUCOSE 90 MG/DL (70-104); MAGNESIUM 1.7 MG/DL (1.5-2.4); POTASSIUM 3.4 MMOL/L (3.5-5.1); SODIUM 138 MMOL/L (135-145); TOTAL CARBON DIOXIDE 28.5 MMOL/L (24-32); eGFR > 90 ML/MIN
[2020-11-25 06:18] LABS: BASOPHILS % (AUTO) 0.4 % (0-1); EOSINOPHILS % (AUTO) 1.1 % (0-6); HEMATOCRIT 25.3 % (35.0-45.0); HEMOGLOBIN 8.5 g/dl (12.0-16.0); LYMPHOCYTES # (AUTO) 0.7 X10'3 (1.1-4.8); LYMPHOCYTES % (AUTO) 17.5 % (21-51); MEAN CORPUSCULAR HEMOGLOBIN 31.6 PG (27.0-31.0); MEAN CORPUSCULAR HGB CONC 33.6 g/dL (33.0-36.5); MEAN CORPUSCULAR VOLUME 93.9 FL (78-98); MEAN PLATELET VOLUME 7.8 FL (7.4-10.4); MONOCYTES # (AUTO) 0.5 X10'3 (0-0.9); NEUTROPHILS # (AUTO) 2.9 X10'3 (1.8-7.7); PLATELET COUNT 153 X10'3 (140-440); RED BLOOD COUNT 2.69 X10'6 (4.20-5.60); RED CELL DISTRIBUTION WIDTH 14.7 % (11.5-14.5); WHITE BLOOD COUNT 4.2 X10'3 (4.5-11.0)
[2020-11-25] MEDS: donepezil 5mg tablet PO SCH ×2 (08:19→19:31)
[2020-11-25] MEDS: docusate sod 100mg capsule PO SCH ×2 (08:21→08:22)
[2020-11-25] MEDS: enoxaparin 40mg/0.4ml syringe SUBCUT SCH (08:28)
[2020-11-25] MEDS: potassium Cl 20 mEq SR tablet PO PRN (08:30)
[2020-11-25] MEDS: K and/or MAG REPLACEMENT MC SCH ×2 (08:31→08:33)
[2020-11-25 10:00] VITALS: BP 147/72
[2020-11-25] MEDS ORDERED: morphine 2 MG/ML inj. syringe IV PRN ×2 (14:45)
--- NOTE | 2020-11-25 16:43 | NUR ---
Initial: Pt admit DX L hip fx s/p OR repair, hypokalemia, acute blood loss anemia, swelling of L thigh possible hematoma, and hx dementia per MD note. Pt AOx1/confused w/ PO ~25% most meals past 2 days slight improvement from initial 0-25% meals first 2.5 days of admit. Not meeting needs. Noted LBM 11/19 6 days constipation receiving routine colace w/ PRN MoM last given 11/23 per EMR. Combination of constipation and ALOC likely impacting PO intake. RD d/w RN regarding additional bowel care if MD agreeable. RN reports pt declining PRN bowel care today w/ ALOC may be more likely to drink kcals as well as prune juice to promote bowel regularity. Will send prune juice daily WS dietary notified. RD recommends Ensure Enlive TIDWM for additional protein/kcals; MD notified. Will continue to monitor for additional protein/kcal needs this admit. Rec: 1. liberalize to regular diet given poor PO hx; encourage PO 2. Ensure Enlive TIDWM; pending MD verification in EMR 3. routine bowel care; 6 days constipation; prune juice WS 4. scaled wt this admit; subsequent weekly wts Addendum: 11/25/20 at [address] Amended: Links added.
[2020-11-25 18:00] VITALS: BP 178/82
--- NOTE | 2020-11-25 18:51 | NUR ---
Report to Raheem RZIO
[2020-11-25] MEDS: HYDROcodone/acetaminophen 10/325mg tab PO PRN (19:48)
[2020-11-25 22:00] VITALS: BP 175/98
[2020-11-26] MEDS: normal saline 1000ml 1,000 ML IV SCH ×3 (00:25→12:27)
[2020-11-26 02:00] VITALS: BP 148/79
[2020-11-26 06:00] VITALS: BP 148/78
--- NOTE | 2020-11-26 06:30 | NUR ---
Patient in room ORTHO 4010. I have received report from elizabeth RIZO and had the opportunity to ask questions and assume patient care.
[2020-11-26] MEDS: lactose-reduced food (Ensure Enlive) - 237ml bottle PO SCH ×2 (08:00→13:00)
[2020-11-26] MEDS: K and/or MAG REPLACEMENT MC SCH ×2 (08:00→20:00)
[2020-11-26] MEDS: docusate sod 100mg capsule PO SCH ×2 (08:41→20:04)
[2020-11-26] MEDS: potassium Cl 20 mEq SR tablet PO PRN (08:41)
[2020-11-26] MEDS: donepezil 5mg tablet PO SCH ×2 (08:42→20:04)
[2020-11-26] MEDS: HYDROcodone/acetaminophen 10/325mg tab PO PRN ×3 (08:42→20:04)
[2020-11-26] MEDS: enoxaparin 40mg/0.4ml syringe SUBCUT SCH (08:43)
[2020-11-26 08:46] LABS: MEAN CORPUSCULAR HGB CONC 33.5 g/dL (33.0-36.5); MEAN CORPUSCULAR VOLUME 92.6 FL (78-98); MEAN PLATELET VOLUME 7.5 FL (7.4-10.4); PLATELET COUNT 188 X10'3 (140-440); RED BLOOD COUNT 2.91 X10'6 (4.20-5.60); RED CELL DISTRIBUTION WIDTH 14.5 % (11.5-14.5)
[2020-11-26 10:00] VITALS: BP 134/74
--- NOTE | 2020-11-26 10:20 | NUR ---
aware of patients K lvl yesterday. stated not to draw K today. Will continue to monitor
[2020-11-26] MEDS ORDERED: iohexol 300mg/ml 100ml inj. ONE (16:17)
--- NOTE | 2020-11-26 17:04 | NUR ---
Pt has been pleasantly confused this shift. Nursing staff called Dr. Hearn, voiced concerns regarding increased swelling and bruising throughout entire LLE. CT of LLE ordered per Dr. Hearn as well as instructions to HOLD Lovenox for one day. Lovenox to continue 11/28/[address] results. Physical therapy and nursing agree patient should remain bedrest until CT of LLE. Marshall to remain in until CT results.Will continue to monitor patient and reposition.
[2020-11-26 18:30] VITALS: BP 146/72
--- NOTE | 2020-11-26 18:36 | NUR ---
Problems reprioritized. Patient report given, questions answered & plan of care reviewed with andrea pacheco.
[2020-11-26 22:00] VITALS: BP 157/84
[2020-11-27 06:00] VITALS: BP 165/80
[2020-11-27] MEDS: normal saline 1000ml 1,000 ML IV SCH (06:25)
--- NOTE | 2020-11-27 07:01 | NUR ---
Patient in room ORTHO 4010. I have received report from andrea rn and had the opportunity to ask questions and assume patient care.
[2020-11-27] MEDS: K and/or MAG REPLACEMENT MC SCH ×2 (07:53→19:43)
[2020-11-27] MEDS: docusate sod 100mg capsule PO SCH ×2 (07:57→19:56)
[2020-11-27] MEDS: donepezil 5mg tablet PO SCH ×2 (07:57→19:57)
[2020-11-27 10:00] VITALS: BP 129/64
[2020-11-27] MEDS: HYDROcodone/acetaminophen 10/325mg tab PO PRN ×2 (14:21→19:57)
[2020-11-27 18:00] VITALS: BP 124/63
--- NOTE | 2020-11-27 18:45 | NUR ---
Patient in room ORTHO 4010. I have received report from Barbi RIZO and had the opportunity to ask questions and assume patient care.
[2020-11-27 22:00] VITALS: BP 152/66
[2020-11-28] MEDS: HYDROcodone/acetaminophen 10/325mg tab PO PRN ×4 (01:47→20:04)
[2020-11-28 06:00] VITALS: BP 144/64
--- NOTE | 2020-11-28 06:12 | NUR ---
Problems reprioritized. Patient report given, questions answered & plan of care reviewed with Marjan RIZO.
--- NOTE | 2020-11-28 06:15 | NUR ---
Patient in room ORTHO 4010. I have received report from SALLIE spear and had the opportunity to ask questions and assume patient care.
[2020-11-28] MEDS: K and/or MAG REPLACEMENT MC SCH ×2 (08:00→19:53)
[2020-11-28] MEDS: donepezil 5mg tablet PO SCH ×2 (08:42→20:04)
[2020-11-28] MEDS: docusate sod 100mg capsule PO SCH ×2 (08:42→20:04)
[2020-11-28] MEDS: enoxaparin 40mg/0.4ml syringe SUBCUT SCH (08:43)
[2020-11-28 10:00] VITALS: BP 144/64
--- NOTE | 2020-11-28 11:43 | NUR ---
Reassessment: Pt PO remains poor ~25-50% avg meals w/ slight improvement to 50-75% avg heart healthy diet yesterday partially meeting needs. Ensure Enlive ONS pending verification in EMR. Will send smoothie TIDWM in meantime for additional kcals; dietary notified. KRYSTAL d/w RN regarding liberalization to regular diet given PO hx if MD agreeable. LBM 11/25 receiving routine colace following prior 6 days constipation. Will continue to monitor. Rec: 1. liberalize to regular diet given poor PO hx; encourage PO 2. Ensure Enlive TIDWM; pending MD verification in EMR; smoothies TIDWM in meantime for additional kcals 3. routine bowel care 4. scaled wt this admit; subsequent weekly wts Addendum: 11/28/20 at [address] Amended: Links added.
[2020-11-28] MEDS: lactose-reduced food (Ensure Enlive) - 237ml bottle PO SCH ×2 (13:00→18:00)
--- NOTE | 2020-11-28 14:04 | NUR ---
F/u: Noted Ensure Enlive TIDWM now active in EMR; dietary notified to send TIDWM instead of smoothies. Rec: 1. liberalize to regular diet given poor PO hx; encourage PO 2. Ensure Enlive TIDWM; encourage PO 3. routine bowel care 4. scaled wt this admit; subsequent weekly wts Addendum: 11/28/20 at [address] Amended: Links added.
[2020-11-28 18:00] VITALS: BP 141/77
--- NOTE | 2020-11-28 18:29 | NUR ---
Problems reprioritized. Patient report given,SALLIE spear questions answered & plan of care reviewed with .
--- NOTE | 2020-11-28 18:45 | NUR ---
Patient in room ORTHO 4010. I have received report from Marjan RIZO and had the opportunity to ask questions and assume patient care.
[2020-11-28 22:00] VITALS: BP 154/76
[2020-11-29] MEDS: HYDROcodone/acetaminophen 10/325mg tab PO PRN ×4 (00:58→20:31)
[2020-11-29] MEDS: magnesium hydroxide 30ml (MOM) UD suspension PO PRN (05:33)
[2020-11-29 06:00] VITALS: BP 137/67
--- NOTE | 2020-11-29 06:05 | NUR ---
Problems reprioritized. Patient report given, questions answered & plan of care reviewed with Marjan RIZO.
--- NOTE | 2020-11-29 06:07 | NUR ---
Patient in room ORTHO 4010. I have received report from SALLIE spear and had the opportunity to ask questions and assume patient care.
[2020-11-29] MEDS: donepezil 5mg tablet PO SCH ×2 (07:01→20:31)
[2020-11-29] MEDS: docusate sod 100mg capsule PO SCH ×2 (07:01→20:31)
[2020-11-29] MEDS: enoxaparin 40mg/0.4ml syringe SUBCUT SCH (07:02)
[2020-11-29] MEDS: lactose-reduced food (Ensure Enlive) - 237ml bottle PO SCH ×3 (08:00→18:00)
[2020-11-29] MEDS: K and/or MAG REPLACEMENT MC SCH ×2 (08:00→20:00)
--- NOTE | 2020-11-29 09:30 | NUR ---
Notified x2 days regarding no labs. denied lab requests.
[2020-11-29 10:00] VITALS: BP 120/58
[2020-11-29] MEDS ORDERED: bisacodyl 10mg suppository rectal RC PRN (15:15)
[2020-11-29 18:00] VITALS: BP 134/62
--- NOTE | 2020-11-29 18:04 | NUR ---
Page Sent PAGER ID: [phone] MESSAGE: [id number] Regarding 4010B Deni, B- Increased amount of sediment noted in chilel throughout day. Pt unable to state specific symptom d/t dementia, however she has had some discomfort. Can we get a UA please?
--- NOTE | 2020-11-29 18:32 | NUR ---
Problems reprioritized. Patient report given,SALLIE spear questions answered & plan of care reviewed with .
--- NOTE | 2020-11-29 18:40 | NUR ---
Patient in room ORTHO 4010. I have received report from Marjan RIZO and had the opportunity to ask questions and assume patient care.
[2020-11-29 22:00] VITALS: BP 162/77
[2020-11-30 06:00] VITALS: BP 150/67
--- NOTE | 2020-11-30 06:08 | NUR ---
Patient in room ORTHO 4010. I have received report from SALLIE spear and had the opportunity to ask questions and assume patient care.
--- NOTE | 2020-11-30 06:18 | NUR ---
Problems reprioritized. Patient report given, questions answered & plan of care reviewed with Marjan RIZO.
[2020-11-30] MEDS: K and/or MAG REPLACEMENT MC SCH ×2 (08:00→20:00)
[2020-11-30] MEDS: docusate sod 100mg capsule PO SCH ×2 (08:41→20:00)
[2020-11-30] MEDS: donepezil 5mg tablet PO SCH ×2 (08:41→21:15)
[2020-11-30] MEDS: lactose-reduced food (Ensure Enlive) - 237ml bottle PO SCH ×3 (08:42→18:00)
[2020-11-30] MEDS: HYDROcodone/acetaminophen 10/325mg tab PO PRN ×2 (08:42→18:09)
[2020-11-30] MEDS: enoxaparin 40mg/0.4ml syringe SUBCUT SCH (08:42)
[2020-11-30 10:00] VITALS: BP 127/54
--- NOTE | 2020-11-30 13:48 | NUR ---
Page Sent PAGER ID: [phone] MESSAGE: [id number] Regarding 4010B Ziyad Cheema- NO LABS since 11/26. Pt has Hx of critically low H&H w/blood transfusion hx, unable to monitor lytes. CBC/CMP PLEASE?
[2020-11-30 14:40] LABS: CLARITY,URINE CLOUDY (Clear); COLOR,URINE YELLOW (Yellow); GLUCOSE, URINE NEGATIVE (Neg); KETONES,URINE 15 mg/dl (Neg); LEUKOCYTE ESTERASE ,URINE MODERATE (Neg); NITRITES, URINE NEGATIVE (Neg); OCCULT BLOOD,URINE NEGATIVE (Neg); PROTEIN,URINE TRACE mg/dl (Neg)
[2020-11-30 14:45] LABS: UA COLLECTION TYPE FOLEY CATH
[2020-11-30 14:46] LABS: WBC,URINE 20-30 /HPF (0-4)
[2020-11-30 14:47] LABS: AMORPHOUS URATES 3+; BACTERIA,URINE FEW /HPF (Neg); MUCUS STRANDS FEW /LPF (Neg); RBC,URINE 0-2 /HPF (0-2); SQUAMOUS EPITHELIAL CELL,UR NONE SEEN /LPF (FEW)
--- NOTE | 2020-11-30 15:06 | NUR ---
Page Sent PAGER ID: [phone] MESSAGE: [id number] Ziyad Cheema- UA results- ketones 15, urobil 2.0, leukocyte moderate H, WBC 20-30, urates 3+, bacteria Few. Culture indicated.
--- NOTE | 2020-11-30 16:20 | NUR ---
notified x3 days that pt does not have labs ordered- denied request.
[2020-11-30 18:00] VITALS: BP 146/70
--- NOTE | 2020-11-30 18:00 | NUR ---
Patient in room ORTHO 4010. I have received report from Marjan RIZO and had the opportunity to ask questions and assume patient care. Addendum: 11/30/20 at 2125 by Kadie Ramirez RN Amended: Links added.
--- NOTE | 2020-11-30 18:00 | NUR ---
Patient in room ORTHO 4006. I have received report from Marjan RIZO and had the opportunity to ask questions and assume patient care. Addendum: 11/30/20 at 1901 by Kadie Ramirez RN Amended: Links added.
--- NOTE | 2020-11-30 18:55 | NUR ---
Problems reprioritized. Patient report given,nessa, RN questions answered & plan of care reviewed with .
[2020-11-30] MEDS: sulfamethoxazole/trimethoprim DS (800/160mg) tablet PO SCH (21:16)
--- NOTE | 2020-11-30 21:16 | NUR ---
Pt. awake Alert to own name and but disoriented to events and place.; reoriented pt. Left hip incision with drsg in place with minimal drainage noted. Pt. very painful on movement but requiring q 2 hrs to prevent skin break down. F/c in place draining to gravity with pt. c/o pain to bladder region. Bed in low position and call light within reach. bed alarm activated for safety. Addendum: 12/01/20 at 0707 by Kadie Ramirez RN Amended: Links added.
[2020-11-30 22:00] VITALS: BP 141/66
[2020-12-01] MEDS: HYDROcodone/acetaminophen 10/325mg tab PO PRN ×5 (00:38→23:03)
--- NOTE | 2020-12-01 05:00 | NUR ---
Pt. slept for a few hours this night. Repositioned pt. q 2 hrs and prn. medicated for pain with prn norco effective. Extremities elevated on pillows for comfort and to decrease edema to left lower extremity in particular. Addendum: 12/01/20 at 0711 by Kadie Ramirez RN Amended: Links added.
[2020-12-01 06:00] VITALS: BP 134/68
--- NOTE | 2020-12-01 06:00 | NUR ---
Problems reprioritized. Patient report given, questions answered & plan of care reviewed with Haylie RIZO. Addendum: 12/01/20 at 0648 by Kadie Ramirez RN Amended: Links added.
--- NOTE | 2020-12-01 06:00 | NUR ---
Problems reprioritized. Patient report given, questions answered & plan of care reviewed with Ladonna RIZO. Addendum: 12/01/20 at 0637 by Kadie Ramirez RN Amended: Links added. Addendum: 12/01/20 at 0641 by Kadie Ramirez RN Wrong nurse!
--- NOTE | 2020-12-01 06:20 | NUR ---
RECEIVED REPORT FROM SALLIE DNUHAM
[2020-12-01] MEDS: lactose-reduced food (Ensure Enlive) - 237ml bottle PO SCH ×3 (08:00→18:04)
[2020-12-01] MEDS: K and/or MAG REPLACEMENT MC SCH ×2 (08:00→19:58)
[2020-12-01] MEDS: sulfamethoxazole/trimethoprim DS (800/160mg) tablet PO SCH ×2 (08:07→20:38)
[2020-12-01] MEDS: docusate sod 100mg capsule PO SCH ×2 (08:07→20:00)
[2020-12-01] MEDS: donepezil 5mg tablet PO SCH ×2 (08:07→20:38)
[2020-12-01] MEDS: enoxaparin 40mg/0.4ml syringe SUBCUT SCH (08:09)
[2020-12-01 10:00] VITALS: BP 129/81
--- NOTE | 2020-12-01 10:07 | NUR ---
Reassessment: Pt PO intake remains similar, consuming about 50% of meals on Heart healthy diet w/ 50-100% of ONS meeting needs. RD d/w RN regarding liberalization to regular diet given PO hx if MD agreeable. No N/V/D noted, LBM 11/30 receiving routine colace. Will continue to monitor PO trends. Rec: 1. liberalize to regular diet given poor PO hx; encourage PO 2. Ensure Enlive TIDWM; encourage PO 3. routine bowel care 4. scaled wt this admit; subsequent weekly wts Addendum: 12/01/20 at [address] Amended: Links added.
[2020-12-01] MEDS ORDERED: PERFLUTREN PROTEIN-A MICROSPHR (Optison) 0.22 MG/ML 3ML VIAL IV PRN (11:10)
--- NOTE | 2020-12-01 18:10 | NUR ---
gave report to tara phillip
[2020-12-01 18:30] VITALS: BP 118/70
[2020-12-01 22:00] VITALS: BP 139/64
[2020-12-02] MEDS: HYDROcodone/acetaminophen 10/325mg tab PO PRN ×4 (03:57→20:22)
[2020-12-02 07:00] VITALS: BP 153/90
[2020-12-02] MEDS: enoxaparin 40mg/0.4ml syringe SUBCUT SCH (07:36)
[2020-12-02] MEDS: sulfamethoxazole/trimethoprim DS (800/160mg) tablet PO SCH ×2 (07:37→20:22)
[2020-12-02] MEDS: donepezil 5mg tablet PO SCH ×2 (07:37→20:21)
[2020-12-02] MEDS: docusate sod 100mg capsule PO SCH ×2 (08:00→20:22)
[2020-12-02] MEDS: K and/or MAG REPLACEMENT MC SCH ×2 (08:00→19:26)
[2020-12-02] MEDS: lactose-reduced food (Ensure Enlive) - 237ml bottle PO SCH ×4 (08:00→18:02)
[2020-12-02 08:37] LABS: BASOPHILS % (AUTO) 0.4 % (0-1); EOSINOPHILS % (AUTO) 0.5 % (0-6); HEMATOCRIT 28.6 % (35.0-45.0); HEMOGLOBIN 9.6 g/dl (12.0-16.0); LYMPHOCYTES # (AUTO) 0.8 X10'3 (1.1-4.8); LYMPHOCYTES % (AUTO) 9.9 % (21-51); MEAN CORPUSCULAR HEMOGLOBIN 31.5 PG (27.0-31.0); MEAN CORPUSCULAR HGB CONC 33.8 g/dL (33.0-36.5); MEAN CORPUSCULAR VOLUME 93.2 FL (78-98); MEAN PLATELET VOLUME 7.8 FL (7.4-10.4); MONOCYTES # (AUTO) 0.9 X10'3 (0-0.9); MONOCYTES % (AUTO) 11.2 % (2-12); PLATELET COUNT 231 X10'3 (140-440); RED BLOOD COUNT 3.06 X10'6 (4.20-5.60); RED CELL DISTRIBUTION WIDTH 15.6 % (11.5-14.5); WHITE BLOOD COUNT 7.6 X10'3 (4.5-11.0)
[2020-12-02 08:43] LABS: ALANINE AMINOTRANSFERASE 24 U/L (12-78); ALBUMIN 2.4 G/DL (3.4-5.0); ALBUMIN/GLOBULIN RATIO 0.9 (1.1-1.5); ALKALINE PHOSPHATASE 101 IU/L (46-116); ANION GAP 7 (8-16); ASPARTATE AMINO TRANSFERASE 23 U/L (10-37); BILIRUBIN,TOTAL 0.8 MG/DL (0.1-1.0); BLOOD UREA NITROGEN 12 MG/DL (7-18); BUN/CREATININE RATIO 24.5 (6.6-38.0); CALCIUM 7.9 MG/DL (8.5-10.1); CHLORIDE 100 MMOL/L (99-107); CREATININE 0.49 MG/DL (0.40-0.90); GLUCOSE 95 MG/DL (70-104); POTASSIUM 4.3 MMOL/L (3.5-5.1); SODIUM 136 MMOL/L (135-145); TOTAL CARBON DIOXIDE 29.4 MMOL/L (24-32); TOTAL PROTEIN 5.2 G/DL (6.4-8.2); eGFR > 90 ML/MIN
[2020-12-02 10:00] VITALS: BP 125/67
--- NOTE | 2020-12-02 12:35 | NUR ---
Re: 3010A can you please come and work with patient, She has a broken bed and we need to get her to new bed perfect timing to work with her please
[2020-12-02 17:00] VITALS: BP 123/44
[2020-12-02 18:00] VITALS: BP 117/53
--- NOTE | 2020-12-02 18:44 | NUR ---
Problems reprioritized. Patient report given, questions answered & plan of care reviewed with Tatiana RIZO.
[2020-12-02] MEDS: lactobacillus rhamnosus 10,000 MMU CELLS/CAPSULE PO SCH (20:20)
[2020-12-03] VITALS: BP 129/62
[2020-12-03] MEDS: HYDROcodone/acetaminophen 10/325mg tab PO PRN ×4 (04:31→20:27)
[2020-12-03 05:31] VITALS: BP 137/64
--- NOTE | 2020-12-03 06:55 | NUR ---
Patient in room ORTHO 4010B. I have received report from SALLIE CASTELAN & RAMO, STUDENT NURSE and had the opportunity to ask questions and assume patient care.
[2020-12-03] MEDS: lactobacillus rhamnosus 10,000 MMU CELLS/CAPSULE PO SCH ×2 (07:40→20:28)
[2020-12-03] MEDS: docusate sod 100mg capsule PO SCH ×3 (07:40→21:22)
[2020-12-03] MEDS: donepezil 5mg tablet PO SCH ×2 (07:40→20:28)
[2020-12-03] MEDS: enoxaparin 40mg/0.4ml syringe SUBCUT SCH (07:40)
[2020-12-03] MEDS: sulfamethoxazole/trimethoprim DS (800/160mg) tablet PO SCH (08:00)
[2020-12-03] MEDS: lactose-reduced food (Ensure Enlive) - 237ml bottle PO SCH ×3 (08:00→18:06)
[2020-12-03] MEDS: K and/or MAG REPLACEMENT MC SCH ×2 (08:00→20:00)
[2020-12-03 10:00] VITALS: BP 111/53
--- NOTE | 2020-12-03 15:12 | NUR ---
GAVE REPORT TO SALLIE JOEL ON SURGICAL. PT IN ROOM 358B
[2020-12-03] MEDS: amox tr/potassium clavulanate 875/125mg TAB PO SCH (17:46)
[2020-12-03 18:00] VITALS: BP 140/76
--- NOTE | 2020-12-03 18:17 | NUR ---
Gave report to Celso RIZO.
--- NOTE | 2020-12-03 19:07 | NUR ---
I have received report from SALLIE Llamas and had the opportunity to ask questions and assume patient care. Addendum: 12/03/20 at 1913 by Celso Castro RN I received report from SALLIE Corbett
[2020-12-03] MEDS ORDERED: bisacodyl 10mg suppository rectal RC PRN (21:35)
[2020-12-04] VITALS: BP 126/66
--- NOTE | 2020-12-04 06:37 | NUR ---
Problems reprioritized. Patient report given, questions answered & plan of care reviewed with SALLIE Francis.
--- NOTE | 2020-12-04 06:39 | NUR ---
Patient in room SUZE 358. I have received report from SALLIE Houston and had the opportunity to ask questions and assume patient care.
[2020-12-04 07:00] VITALS: BP 132/63
[2020-12-04] MEDS: lactose-reduced food (Ensure Enlive) - 237ml bottle PO SCH ×3 (08:00→18:24)
[2020-12-04] MEDS: K and/or MAG REPLACEMENT MC SCH ×2 (08:00→20:00)
[2020-12-04] MEDS: donepezil 5mg tablet PO SCH ×2 (09:14→20:36)
[2020-12-04] MEDS: enoxaparin 40mg/0.4ml syringe SUBCUT SCH (09:14)
[2020-12-04] MEDS: lactobacillus rhamnosus 10,000 MMU CELLS/CAPSULE PO SCH ×2 (09:14→20:36)
[2020-12-04] MEDS: amox tr/potassium clavulanate 875/125mg TAB PO SCH ×2 (09:25→17:50)
[2020-12-04] MEDS: docusate sod 100mg capsule PO SCH ×2 (09:38→20:36)
[2020-12-04] MEDS: HYDROcodone/acetaminophen 10/325mg tab PO PRN ×2 (11:12→17:50)
[2020-12-04 11:58] VITALS: BP_SYST 53
[2020-12-04 18:00] VITALS: BP 138/77
--- NOTE | 2020-12-04 18:19 | NUR ---
Patient in room SUZE 358B. I have received report from SALLIE Francis and had the opportunity to ask questions and assume patient care.
--- NOTE | 2020-12-04 18:24 | NUR ---
Problems reprioritized. Patient report given, questions answered & plan of care reviewed with SALLIE Simpson.
[2020-12-05] VITALS: BP 132/68
[2020-12-05] MEDS: HYDROcodone/acetaminophen 10/325mg tab PO PRN ×2 (05:36→21:50)
--- NOTE | 2020-12-05 06:30 | NUR ---
Problems reprioritized. Patient report given, questions answered & plan of care reviewed with SALLIE Reeves.
[2020-12-05 08:00] VITALS: BP 131/66
[2020-12-05] MEDS: K and/or MAG REPLACEMENT MC SCH ×2 (08:00→20:00)
[2020-12-05] MEDS: docusate sod 100mg capsule PO SCH ×3 (08:00→20:10)
[2020-12-05] MEDS: donepezil 5mg tablet PO SCH ×2 (08:26→20:10)
[2020-12-05] MEDS: amox tr/potassium clavulanate 875/125mg TAB PO SCH ×2 (08:26→16:49)
[2020-12-05] MEDS: lactobacillus rhamnosus 10,000 MMU CELLS/CAPSULE PO SCH ×2 (08:26→20:10)
[2020-12-05] MEDS: lactose-reduced food (Ensure Enlive) - 237ml bottle PO SCH ×3 (08:27→18:22)
[2020-12-05] MEDS: enoxaparin 40mg/0.4ml syringe SUBCUT SCH (08:27)
--- NOTE | 2020-12-05 09:59 | NUR ---
Reassessment: Pt seen by wound care, per note pt with partial thick skin tear to right calf and left elbow with no signs of infection. Patient continues with average 50% PO intake of meals with average 75% PO intake of ONS. Combined PO intake of meals and ONS is meeting estimated nutrient needs. LBM 12/03, no longer receiving routine bowel care though did receive PRN bowel care 11/29. No further nutrition intervention implemented at this time. Will continue to follow. Rec: 1. Liberalize to regular diet to optimize PO intake given no significant heart related PMH 2. Ensure Enlive TIDWM 3. Bowel care per rx 4. Scaled wt this admit; subsequent weekly wts Addendum: 12/05/20 at [address] Amended: Links added.
[2020-12-05 11:41] VITALS: BP 128/67
[2020-12-05 18:00] VITALS: BP 132/61
--- NOTE | 2020-12-05 18:20 | NUR ---
Patient in room SUZE 358. I have received report from SALLIE Reeves and had the opportunity to ask questions and assume patient care.
--- NOTE | 2020-12-05 18:30 | NUR ---
REPORT GIVEN TO SHERRIE RIZO. PT IN BED EATING
--- NOTE | 2020-12-05 19:40 | NUR ---
Report received from SALLIE Reeves. SALLIE Izaguirre and I are assuming care of the patient. Patient repositioned
--- NOTE | 2020-12-06 04:07 | NUR ---
pt refused 0000 vitals Addendum: 12/06/20 at 0408 by Zina Smiley RN Amended: Links added.
--- NOTE | 2020-12-06 06:27 | NUR ---
Problems reprioritized. Patient report given, questions answered & plan of care reviewed with SALLIE Francis.
--- NOTE | 2020-12-06 06:35 | NUR ---
I agree with charting, assessment, and report done by SALLIE Izaguirre new hire
--- NOTE | 2020-12-06 06:43 | NUR ---
Patient in room SUZE 358. I have received report from SALLIE Houston and had the opportunity to ask questions and assume patient care.
[2020-12-06 07:00] VITALS: BP 146/69
[2020-12-06] MEDS: K and/or MAG REPLACEMENT MC SCH ×2 (08:00→20:00)
[2020-12-06] MEDS: docusate sod 100mg capsule PO SCH ×2 (08:00→20:00)
[2020-12-06] MEDS: amox tr/potassium clavulanate 875/125mg TAB PO SCH ×2 (08:17→17:42)
[2020-12-06] MEDS: HYDROcodone/acetaminophen 10/325mg tab PO PRN ×2 (08:18→15:37)
[2020-12-06] MEDS: donepezil 5mg tablet PO SCH ×2 (08:18→21:06)
[2020-12-06] MEDS: lactobacillus rhamnosus 10,000 MMU CELLS/CAPSULE PO SCH ×2 (08:18→21:06)
[2020-12-06] MEDS: enoxaparin 40mg/0.4ml syringe SUBCUT SCH (08:19)
[2020-12-06] MEDS: lactose-reduced food (Ensure Enlive) - 237ml bottle PO SCH ×4 (08:19→18:50)
[2020-12-06 12:21] VITALS: BP 116/54
[2020-12-06 18:00] VITALS: BP 136/76
--- NOTE | 2020-12-06 18:45 | NUR ---
Problems reprioritized. Patient report given, questions answered & plan of care reviewed with SALLIE Sierra.
[2020-12-07] VITALS: BP 144/73
--- NOTE | 2020-12-07 04:31 | NUR ---
Patient in room SUZE 358. I have received report from Penny RIZO and had the opportunity to ask questions and assume patient care.
[2020-12-07 07:00] VITALS: BP 147/85
--- NOTE | 2020-12-07 07:18 | NUR ---
Patient in room SUZE 358. I have received report from Rigo RIZO and had the opportunity to ask questions and assume patient care.
[2020-12-07] MEDS: lactobacillus rhamnosus 10,000 MMU CELLS/CAPSULE PO SCH ×2 (07:48→19:11)
[2020-12-07] MEDS: enoxaparin 40mg/0.4ml syringe SUBCUT SCH (07:48)
[2020-12-07] MEDS: donepezil 5mg tablet PO SCH ×2 (07:48→19:11)
[2020-12-07] MEDS: amox tr/potassium clavulanate 875/125mg TAB PO SCH ×2 (07:48→17:47)
[2020-12-07] MEDS: docusate sod 100mg capsule PO SCH ×2 (08:00→19:08)
[2020-12-07] MEDS: K and/or MAG REPLACEMENT MC SCH ×2 (08:00→19:08)
--- NOTE | 2020-12-07 09:05 | NUR ---
Patient wanting to more juice in her Large containers. Called patients Denis and he will bring more juice containers for patient in the meantime patient is ok with our individual servings.
[2020-12-07 12:00] VITALS: BP 124/67
[2020-12-07] MEDS: lactose-reduced food (Ensure Enlive) - 237ml bottle PO SCH ×2 (13:17→18:27)
[2020-12-07] MEDS ORDERED: loperamide 2mg capsule PO ONE (15:50)
--- NOTE | 2020-12-07 18:27 | NUR ---
Problems reprioritized. Patient report given, questions answered & plan of care reviewed with Rigo RIZO.
--- NOTE | 2020-12-07 18:37 | NUR ---
Patient in room SUZE 358. I have received report from Tereza RIZO and had the opportunity to ask questions and assume patient care.
[2020-12-07 20:00] VITALS: BP 144/77
[2020-12-07] MEDS: HYDROcodone/acetaminophen 10/325mg tab PO PRN (22:06)
[2020-12-08] VITALS: BP 123/69
[2020-12-08 05:53] LABS: BASOPHILS % (AUTO) 0.5 % (0-1); EOSINOPHILS # (AUTO) 0.1 X10'3 (0-0.9); HEMATOCRIT 34.3 % (35.0-45.0); HEMOGLOBIN 11.2 g/dl (12.0-16.0); LYMPHOCYTES # (AUTO) 0.8 X10'3 (1.1-4.8); MEAN CORPUSCULAR HEMOGLOBIN 30.9 PG (27.0-31.0); MEAN CORPUSCULAR HGB CONC 32.7 g/dL (33.0-36.5); MEAN CORPUSCULAR VOLUME 94.6 FL (78-98); MEAN PLATELET VOLUME 8.1 FL (7.4-10.4); MONOCYTES # (AUTO) 1.1 X10'3 (0-0.9); MONOCYTES % (AUTO) 13.6 % (2-12); NEUTROPHILS # (AUTO) 5.9 X10'3 (1.8-7.7); NEUTROPHILS % (AUTO) 74.9 % (42-75); PLATELET COUNT 286 X10'3 (140-440); RED BLOOD COUNT 3.62 X10'6 (4.20-5.60); RED CELL DISTRIBUTION WIDTH 15.6 % (11.5-14.5); WHITE BLOOD COUNT 7.9 X10'3 (4.5-11.0)
--- NOTE | 2020-12-08 06:29 | NUR ---
Patient in room SUZE 358. I have received report from Diego) SALLIE and had the opportunity to ask questions and assume patient care.
[2020-12-08 06:39] LABS: ALANINE AMINOTRANSFERASE 29 U/L (12-78); ALBUMIN 2.6 G/DL (3.4-5.0); ALBUMIN/GLOBULIN RATIO 0.8 (1.1-1.5); ALKALINE PHOSPHATASE 135 IU/L (46-116); ANION GAP 6 (8-16); ASPARTATE AMINO TRANSFERASE 22 U/L (10-37); BILIRUBIN,TOTAL 0.6 MG/DL (0.1-1.0); BLOOD UREA NITROGEN 14 MG/DL (7-18); CALCIUM 8.8 MG/DL (8.5-10.1); CHLORIDE 103 MMOL/L (99-107); CREATININE 0.61 MG/DL (0.40-0.90); GLUCOSE 102 MG/DL (70-104); POTASSIUM 4.3 MMOL/L (3.5-5.1); SODIUM 141 MMOL/L (135-145); TOTAL CARBON DIOXIDE 32.1 MMOL/L (24-32); TOTAL PROTEIN 5.9 G/DL (6.4-8.2); eGFR > 90 ML/MIN
--- NOTE | 2020-12-08 06:41 | NUR ---
Problems reprioritized. Patient report given, questions answered & plan of care reviewed with Farhad RIZO.
[2020-12-08 07:00] VITALS: BP 140/66
[2020-12-08] MEDS: lactose-reduced food (Ensure Enlive) - 237ml bottle PO SCH ×3 (08:00→18:43)
[2020-12-08] MEDS: docusate sod 100mg capsule PO SCH ×2 (08:00→20:00)
[2020-12-08] MEDS: K and/or MAG REPLACEMENT MC SCH ×2 (08:00→20:00)
[2020-12-08] MEDS: enoxaparin 40mg/0.4ml syringe SUBCUT SCH (09:33)
[2020-12-08] MEDS: donepezil 5mg tablet PO SCH ×2 (09:33→20:58)
[2020-12-08] MEDS: lactobacillus rhamnosus 10,000 MMU CELLS/CAPSULE PO SCH ×2 (09:33→20:58)
[2020-12-08] MEDS: amox tr/potassium clavulanate 875/125mg TAB PO SCH ×2 (09:33→18:49)
[2020-12-08 11:00] VITALS: BP 121/64
--- NOTE | 2020-12-08 18:30 | NUR ---
Patient in room SUZE 358. I have received report from [facility] and had the opportunity to ask questions and assume patient care. ASSUMED CARE OF PT WITH RN STUDENT SUBHA Santacruz
[2020-12-08 19:00] VITALS: BP 127/62
[2020-12-08] MEDS: HYDROcodone/acetaminophen 10/325mg tab PO PRN (19:35)
[2020-12-08 23:00] VITALS: BP 140/68
[2020-12-09] MEDS: HYDROcodone/acetaminophen 10/325mg tab PO PRN ×2 (05:44→19:37)
--- NOTE | 2020-12-09 05:56 | NUR ---
Student documentation: I have reviewed and agree with all interventions, assessments performed and documented by SUBHA Graham Medication Administration: For this medication-pass time frame, all medication were reviewed, dispensed, administered and documented per hospital policy by SUBHA Santacruz
--- NOTE | 2020-12-09 06:21 | NUR ---
Problems reprioritized. Patient report given, questions answered & plan of care reviewed with NIKO.
--- NOTE | 2020-12-09 06:59 | NUR ---
Patient in room SUZE 358B. I have received report from SALLIE FAROOQ & ELMO MASCORRO and had the opportunity to ask questions and assume patient care
[2020-12-09 08:00] VITALS: BP 115/67
[2020-12-09] MEDS: K and/or MAG REPLACEMENT MC SCH ×2 (08:00→20:00)
[2020-12-09] MEDS: amox tr/potassium clavulanate 875/125mg TAB PO SCH ×2 (08:43→18:10)
[2020-12-09] MEDS: donepezil 5mg tablet PO SCH ×2 (08:43→19:37)
[2020-12-09] MEDS: lactobacillus rhamnosus 10,000 MMU CELLS/CAPSULE PO SCH ×2 (08:43→19:36)
[2020-12-09] MEDS: docusate sod 100mg capsule PO SCH ×2 (08:43→19:37)
[2020-12-09] MEDS: enoxaparin 40mg/0.4ml syringe SUBCUT SCH (08:44)
[2020-12-09] MEDS: lactose-reduced food (Ensure Enlive) - 237ml bottle PO SCH ×3 (08:44→18:00)
[2020-12-09 11:00] VITALS: BP 129/63
[2020-12-09 13:30] VITALS: BP 129/63
[2020-12-09 20:00] VITALS: BP 128/70
--- NOTE | 2020-12-09 20:25 | NUR ---
Problems reprioritized. Patient report given, questions answered & plan of care reviewed with SALLIE CROW.
[2020-12-10 07:00] VITALS: BP 140/74
[2020-12-10] MEDS ORDERED: HYDR-3972 PO (09:19)
[2020-12-10] MEDS: amox tr/potassium clavulanate 875/125mg TAB PO SCH (13:25)
[2020-12-10] MEDS: HYDROcodone/acetaminophen 10/325mg tab PO PRN (13:26)
[2020-12-10] MEDS: donepezil 5mg tablet PO SCH (13:26)
[2020-12-10] MEDS: lactobacillus rhamnosus 10,000 MMU CELLS/CAPSULE PO SCH (13:26)
[2020-12-10] MEDS: docusate sod 100mg capsule PO SCH (13:26)
[2020-12-10] MEDS: enoxaparin 40mg/0.4ml syringe SUBCUT SCH (13:27)
== END 2020-12-10 15:45 | disposition home health service (06) | DRG 481 ==
LOC: ER 10:27 → ED HOLD 14:24 → ORTHO 4S 17:25 → SUR 3N 12-03 14:50 → UNDODISIN 12-10 15:00
PROVIDERS: ADMIT Family Medicine; ATTEND Family Medicine
PROC: 0QH706Z Insertion of Intramedullary Internal Fixation Device into Left Upper Femur, Open Approach (ICD-10-PCS; principal; 2020-11-22 12:15)
PROC: 30233N1 Transfusion of Nonautologous Red Blood Cells into Peripheral Vein, Percutaneous Approach (ICD-10-PCS; 2020-11-24)
PROC: BQ2S1ZZ Computerized Tomography (CT Scan) of Left Lower Extremity using Low Osmolar Contrast (ICD-10-PCS; 2020-11-26)
DX: S72.142A Displaced intertrochanteric fracture of left femur, initial encounter for closed fracture (principal); D62 Acute posthemorrhagic anemia; N39.0 Urinary tract infection, site not specified; S70.12XA Contusion of left thigh, initial encounter; F41.9 Anxiety disorder, unspecified; F03.90 Unspecified dementia, unspecified severity, without behavioral disturbance, psychotic disturbance, mood disturbance, and anxiety; W01.0XXA Fall on same level from slipping, tripping and stumbling without subsequent striking against object, initial encounter; B95.2 Enterococcus as the cause of diseases classified elsewhere; R01.1 Cardiac murmur, unspecified; Y93.01 Activity, walking, marching and hiking; E87.6 Hypokalemia; F17.210 Nicotine dependence, cigarettes, uncomplicated; G62.9 Polyneuropathy, unspecified; Y92.098 Other place in other non-institutional residence as the place of occurrence of the external cause
CPT/HCPCS: 36415; 36430; 70450; 71045; 72125; 73502; 73560; 73701; 76000; 80048; 80053; 81001; 82948; 83735; 85025; 85027; 85610; 85730; 86885; 86900; 86901; 86920; 87070; 87077; 87081; 87088; 87186; 87635; 93005; 93306; 93971; 97110; 97112; 97116; 97161; 97530; 97535; 99285; A4618; A7000; C1713; C9803; G0378; J0690; J1650; J2250; J2270; J2370; J2704; J3010; J7030; P9016; Q9967

== ENCOUNTER 2021-02-22 12:04 | Emergency (ER) | payer BC ==
[~2021-02-22] VITALS: Ht 165.1 cm; Wt 40.0 kg
[~2021-02-22 12:04] MED LIST changes: -DIVA500T9 PO; -GABA600T13 PO; +HYDR-3972 PO; -OLAN5TAB75 PO
[2021-02-22] MEDS ORDERED: HYDR-3965 PO (14:52)
[2021-02-22] MEDS ORDERED: propofol 10mg/ml 20ml vial IV ONE (14:55)
[2021-02-22 17:00] VITALS: BP 157/68
== END 2021-02-22 17:26 | disposition home or self-care (01) ==
LOC: ER 12:05
DX: S52.512A Displaced fracture of left radial styloid process, initial encounter for closed fracture (principal); M25.532 Pain in left wrist; F41.9 Anxiety disorder, unspecified; Z98.890 Other specified postprocedural states; Z72.89 Other problems related to lifestyle; Z79.899 Other long term (current) drug therapy; W18.30XA Fall on same level, unspecified, initial encounter; Y93.89 Activity, other specified; Y92.89 Other specified places as the place of occurrence of the external cause; Y99.8 Other external cause status
CPT/HCPCS: 25605; 73100; 73110; 94760; 94799; 99152; 99285

== ENCOUNTER 2021-06-02 16:11 | Emergency (ER) | payer BC ==
[~2021-06-02] VITALS: Ht 162.6 cm; Wt 55.9 kg
[2021-06-02 16:20] VITALS: BP 113/83
[2021-06-02] MEDS ORDERED: NYSPWD TP (17:02)
== END 2021-06-02 17:17 | disposition home or self-care (01) ==
LOC: ER 16:12
DX: B37.89 Other sites of candidiasis (principal); F41.9 Anxiety disorder, unspecified; Z98.890 Other specified postprocedural states; Z72.89 Other problems related to lifestyle; Z79.899 Other long term (current) drug therapy
CPT/HCPCS: 99283

== ENCOUNTER 2021-10-19 13:14 | Emergency (ER) | payer BC ==
[~2021-10-19] VITALS: Ht 165.1 cm; Wt 47.7 kg
[~2021-10-19 13:14] MED LIST changes: +NYSPWD TP
[2021-10-19 13:20] VITALS: BP 146/80
[2021-10-19] MEDS ORDERED: bacitracin 15gm ointment TP ONE (14:35)
== END 2021-10-19 15:30 | disposition home or self-care (01) ==
LOC: ER 13:15
DX: S41.111A Laceration without foreign body of right upper arm, initial encounter (principal); S61.511A Laceration without foreign body of right wrist, initial encounter; F03.90 Unspecified dementia, unspecified severity, without behavioral disturbance, psychotic disturbance, mood disturbance, and anxiety; G62.9 Polyneuropathy, unspecified; Z87.81 Personal history of (healed) traumatic fracture; Z72.89 Other problems related to lifestyle; Z79.899 Other long term (current) drug therapy; X58.XXXA Exposure to other specified factors, initial encounter; Y93.89 Activity, other specified; Y92.89 Other specified places as the place of occurrence of the external cause; Y99.8 Other external cause status
CPT/HCPCS: 99284; A6258; A6449

== ENCOUNTER 2021-12-12 11:29 | Emergency (ER) | payer BC ==
[~2021-12-12] VITALS: Ht 165.1 cm; Wt 47.7 kg
[2021-12-12 11:45] VITALS: BP 143/81
== END 2021-12-12 14:03 | disposition home or self-care (01) ==
LOC: ER 11:31
DX: G30.9 Alzheimer's disease, unspecified (principal); F02.80 Dementia in other diseases classified elsewhere, unspecified severity, without behavioral disturbance, psychotic disturbance, mood disturbance, and anxiety; R15.9 Full incontinence of feces; F41.9 Anxiety disorder, unspecified; Z87.81 Personal history of (healed) traumatic fracture; Z79.899 Other long term (current) drug therapy
CPT/HCPCS: 99284